=== PATIENT | male | born 1990 | race African-American/Black ===

== ENCOUNTER 2017-11-21 09:56 | Emergency (ER) | payer MEDICAID ==
[~2017-11-21] VITALS: Ht 185.4 cm; Wt 74.4 kg
[2017-11-21 10:15] VITALS: BP 97/55
--- NOTE | 2017-11-21 10:21 | NUR ---
Patient to bed 11 at this time.
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
[2017-11-21] MEDS ORDERED: DIAZEPAM 5 MG TAB PO ONE (10:30)
[2017-11-21] MEDS ORDERED: KETOROLAC 30 MG/ML VIAL IM ONE (10:30)
--- NOTE | 2017-11-21 10:33 | NUR ---
xray by bedside
[2017-11-21 11:10] VITALS: BP 103/60
--- NOTE | 2017-11-21 11:10 | NUR ---
Patient discharged with v/s stable. Written and verbal after care instructions given and explained. Patient alert, oriented and verbalized understanding of instructions. Ambulatory with steady gait. All questions addressed prior to discharge. ID band removed. Patient advised to follow up with PMD. Rx of Valium and Naprosyn given. Patient educated on indication of medication including possible reaction and side effects. Opportunity to ask questions provided and answered.
== END 2017-11-21 11:10 | disposition home or self-care (01) ==
LOC: MED 09:56
DX: S29.012A Strain of muscle and tendon of back wall of thorax, initial encounter (principal); S60.212A Contusion of left wrist, initial encounter; J45.909 Unspecified asthma, uncomplicated; V43.62XA Car passenger injured in collision with other type car in traffic accident, initial encounter; Y93.I9 Activity, other involving external motion; Y92.488 Other paved roadways as the place of occurrence of the external cause; Y99.8 Other external cause status
CPT/HCPCS: 71045; 73110; 96372; 99284; J1885; Q0092

== ENCOUNTER 2017-12-28 17:24 | Emergency (ER) | payer MEDICAID ==
[~2017-12-28] VITALS: Ht 185.4 cm; Wt 75.3 kg
[2017-12-28 17:45] VITALS: BP 129/75
--- NOTE | 2017-12-28 17:50 | NUR ---
Nicole alves in [facility] - 12/28/17 at 1810 by [facility] AT BEDSIDE.
--- NOTE | 2017-12-28 18:02 | NUR ---
Patient being evaluated by DR BAJWA .
--- NOTE | 2017-12-28 18:05 | NUR ---
27/M BIB SELF C/O TOOTHACHE TO LEFT UPPER AND LOWER JAW X2 DAYS.HX ASTHMA.DENIES N/V/D; SKIN IS PINK/WARM/DRY; AAOX4 WITH EVEN AND STEADY GAIT; LUNGS CLEAR BL; HR EVEN AND REGULAR; PT DENIES ANY FEVER, CP, SOB, OR COUGH AT THIS TIME; PATIENT STATES PAIN OF 08/27 AT THIS TIME. Addendum: 12/28/17 at 1806 by [email or web address] PT ARBEN NOT WANT PAIN MED AT THIS TIME.
--- NOTE | 2017-12-28 18:07 | NUR ---
Patient discharged BY DR BAJWA with v/s stable. Written and verbal after care instructions given and explained. Patient alert, oriented and verbalized understanding of instructions. Ambulatory with steady gait. All questions addressed prior to discharge. ID band removed. Patient advised to follow up with PMD. Rx of NAPROSYN, PENICILLIN given. Patient educated on indication of medication including possible reaction and side effects. Opportunity to ask questions provided and answered.
[2017-12-28 18:08] VITALS: BP 129/75
== END 2017-12-28 18:07 | disposition home or self-care (01) ==
LOC: MED 17:24
DX: K02.9 Dental caries, unspecified (principal); J45.909 Unspecified asthma, uncomplicated
CPT/HCPCS: 99283

== ENCOUNTER 2018-01-30 07:25 | Emergency (ER) | payer MEDICAID ==
[~2018-01-30] VITALS: Ht 182.9 cm; Wt 69.6 kg
[2018-01-30 07:29] VITALS: BP 119/74
--- NOTE | 2018-01-30 07:33 | NUR ---
PATIENT AMBULATED TO BED 3.
[2018-01-30] MEDS ORDERED: DICYCLOMINE HCL LIQUID 20 MG, ALUMINUM HYD/MAG/SIMETHICONE 30 ML, LIDOCAINE VISCOUS 2% ... PO ONE ×3 (07:35)
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
--- NOTE | 2018-01-30 07:49 | NUR ---
X-Ray at bedside.
[2018-01-30 08:24] VITALS: BP 131/80
--- NOTE | 2018-01-30 08:25 | NUR ---
Patient discharged with v/s stable. Written and verbal after care instructions given and explained. Patient alert, oriented and verbalized understanding of instructions. Ambulatory with steady gait. All questions addressed prior to discharge. ID band removed. Patient advised to follow up with PMD. Rx of Mylanta given. Patient educated on indication of medication including possible reaction and side effects. Opportunity to ask questions provided and answered.
== END 2018-01-30 08:25 | disposition home or self-care (01) ==
LOC: MED 07:25
DX: R10.10 Upper abdominal pain, unspecified (principal); J45.909 Unspecified asthma, uncomplicated
CPT/HCPCS: 74018; 99283; Q0092

== ENCOUNTER 2018-02-14 07:05 | Emergency (ER) | payer MEDICAID ==
[~2018-02-14] VITALS: Ht 185.4 cm; Wt 75.7 kg
[2018-02-14 07:19] VITALS: BP 126/78
[2018-02-14] MEDS ORDERED: IBUPROFEN 800 MG TAB PO ONE (07:35)
[2018-02-14] MEDS ORDERED: CYCLOBENZAPRINE 10 MG TAB PO ONE (07:35)
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
[2018-02-14 08:06] VITALS: BP 126/78
--- NOTE | 2018-02-14 08:12 | NUR ---
Patient discharged with v/s stable. Written and verbal after care instructions given and explained. Patient alert, oriented and verbalized understanding of instructions. Ambulatory with steady gait. All questions addressed prior to discharge. ID band removed. Patient advised to follow up with PMD. Rx of IBUPROFEN 800MG given. Patient educated on indication of medication including possible reaction and side effects. Opportunity to ask questions provided and answered.
== END 2018-02-14 08:12 | disposition home or self-care (01) ==
LOC: MED 07:05
DX: M54.5 Low back pain (principal); J45.909 Unspecified asthma, uncomplicated; Z71.6 Tobacco abuse counseling; V49.59XA Passenger injured in collision with other motor vehicles in traffic accident, initial encounter; Y93.89 Activity, other specified; Y92.488 Other paved roadways as the place of occurrence of the external cause; Y99.8 Other external cause status
CPT/HCPCS: 99283

== ENCOUNTER 2018-04-28 12:54 | Emergency (ER) | payer MEDICAID ==
[~2018-04-28] VITALS: Ht 185.4 cm; Wt 84.8 kg
--- NOTE | 2018-04-28 13:39 | NUR ---
ATTEMPTED TO TRIAGE PATIENT. PATIENT COMMENTED WHEN ANSWERING TO CALL "ABOUT TIME YOU GUYS WORK AND DO SOMETHING". I ASKED FOR OF PATIENT TO WAIT IN LOBBY WHILE TRAIGING PATIENT. ASKED TO STAY IN TRIAGE ROOM..AND STATED "IM HIS ...GO TO YOUR JOB AND SIT DOWN OVER THERE....THERES ROOM OVER THERE". I EXPLAINED TO PATIENT AND THAT THE ER WAS FULL AND SOON PATIENT WAS DONE BEING TRIAGED HE WOULD GO BACK TO [facility] TO WAIT FOR AN AVAILABLE ROOM. ALSO INFORMED OF PATIENT AND PATIENT, THEY ARE ABLE TO STAY WELL. PATIENT AND BECAME MORE AGGRESSIVE. STATED "I SAID GO DO YOUR JOB...BARBARA SEEN ALL THESE PATIENT COME BACK AND UP IN YOUR [facility] TRIAGE ROOM"..."WHY US...ITS BECAUSE OF OUR SKIN COLOR..BECAUSE WE ARE BLACK". I LEFT TRIAGE AREA TO DE-ESCALATE SITUATION AND FOR ANOTHER NURSE TO HELP AND SECURITY CALLED. WHILE GETTING ANOTHER NURSE, PATIENT STATED "GO AHEAD, YOU RACIST WHITE BITCH"..."ILL FIND YOU AND FUCK YOU UP YOU DUMB BITCH". DINORA TOWNSEND CALLED AND SECURITY ON THERE WAY.
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
[2018-04-28 13:49] VITALS: BP 120/73
--- NOTE | 2018-04-28 13:53 | NUR ---
PATIENT PRESENTS TO ED WITH c/o decayed molar pain---no drainage noted, no facial edema noted . . DENIES N/V/D; SKIN IS PINK/WARM/DRY; AAOX4 WITH EVEN AND STEADY GAIT; LUNGS CLEAR BL; HR EVEN AND REGULAR; PT DENIES ANY FEVER, CP, SOB, OR COUGH AT THIS TIME; PATIENT STATES PAIN OF 10/10 AT THIS TIME; VSS; PATIENT POSITIONED FOR COMFORT; HOB ELEVATED; BEDRAILS UP X2; BED DOWN. ER MD MADE AWARE OF PT STATUS.
[2018-04-28] MEDS ORDERED: ACETAMINOPHEN EXTRA STRENGTH 500 MG TAB PO ONE (14:45)
[2018-04-28] MEDS ORDERED: IBUPROFEN 400 MG TAB PO ONE (14:45)
--- NOTE | 2018-04-28 15:05 | NUR ---
Patient discharged with v/s stable. Written and verbal after care instructions given and explained. Patient alert, oriented and verbalized understanding of instructions. Ambulatory with steady gait. All questions addressed prior to discharge. ID band removed. Patient advised to follow up with PMD. Rx of NORCO/MOTRIN/AUGMENTIN given. Patient educated on indication of medication including possible reaction and side effects. Opportunity to ask questions provided and answered.
[2018-04-28 15:06] VITALS: BP 126/78
== END 2018-04-28 15:05 | disposition home or self-care (01) ==
LOC: MED 12:54
DX: K05.20 Aggressive periodontitis, unspecified (principal)
CPT/HCPCS: 99283

== ENCOUNTER 2020-08-30 07:38 | Emergency (ER) | payer MEDICAID ==
[~2020-08-30] VITALS: Ht 170.2 cm; Wt 75.7 kg
[2020-08-30 07:41] VITALS: BP 122/75
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
--- NOTE | 2020-08-30 07:48 | NUR ---
DR KU AT BEDSIDE EVALUATING PT.
[2020-08-30] MEDS ORDERED: IBUPROFEN 600 MG TAB PO ONE (07:50)
--- NOTE | 2020-08-30 08:00 | NUR ---
XRAY AT BEDSIDE .
[2020-08-30 08:29] VITALS: BP 122/75
--- NOTE | 2020-08-30 08:30 | NUR ---
Patient discharged with v/s stable. Written and verbal after care instructions given and explained regarding bone bruise. Patient alert, oriented and verbalized understanding of instructions. Ambulatory with steady gait. All questions addressed prior to discharge. ID band removed. Patient advised to follow up with PMD. Rx of motrin given. Patient educated on indication of medication including possible reaction and side effects. Opportunity to ask questions provided and answered.Off from work given.
== END 2020-08-30 08:30 | disposition home or self-care (01) ==
LOC: MED 07:38
DX: S69.92XA Unspecified injury of left wrist, hand and finger(s), initial encounter (principal); J45.909 Unspecified asthma, uncomplicated; F17.210 Nicotine dependence, cigarettes, uncomplicated; X58.XXXA Exposure to other specified factors, initial encounter; Y93.89 Activity, other specified; Y92.89 Other specified places as the place of occurrence of the external cause; Y99.8 Other external cause status
CPT/HCPCS: 73130; 99283; Q0092

== ENCOUNTER 2020-09-05 05:19 | Emergency (ER) | payer MEDICAID ==
[~2020-09-05] VITALS: Ht 185.4 cm; Wt 76.2 kg
[2020-09-05 05:30] VITALS: BP 120/86
[2020-09-05] MEDS ORDERED: KETOROLAC 60 MG/2 ML VIAL IM ONE (05:55)
[2020-09-05 06:41] VITALS: BP 120/86
== END 2020-09-05 06:41 | disposition home or self-care (01) ==
LOC: MED 05:19
DX: S60.222A Contusion of left hand, initial encounter (principal); J45.909 Unspecified asthma, uncomplicated; F12.90 Cannabis use, unspecified, uncomplicated; X58.XXXA Exposure to other specified factors, initial encounter; Y93.89 Activity, other specified; Y92.89 Other specified places as the place of occurrence of the external cause; Y99.8 Other external cause status
CPT/HCPCS: 73130; 99283; J1885; Q0092

== ENCOUNTER 2021-07-24 12:28 | Emergency (ER) | payer MEDICAID, OTHER ==
[~2021-07-24] VITALS: Ht 185.4 cm; Wt 78.0 kg
[2021-07-24 12:38] VITALS: BP 139/92
--- NOTE | 2021-07-24 12:45 | NUR ---
PT SENT TO LOBBY TO AWAIT AVAILABLE BED
--- NOTE | 2021-07-24 12:45 | NUR ---
PT. GIVEN URINE CUP TO PROVIDE SAMPLE
[2021-07-24] MEDS ORDERED: DICYCLOMINE HCL LIQUID 20 MG, ALUMINUM HYD/MAG/SIMETHICONE 30 ML, LIDOCAINE VISCOUS 2% ... PO ONE ×3 (14:35)
[2021-07-24] MEDS ORDERED: ONDANSETRON 4 MG ODT PO ONE (14:35)
[2021-07-24] MEDS ORDERED: ACETAMINOPHEN EXTRA STRENGTH 500 MG TAB PO ONE (14:35)
[2021-07-24] MEDS ORDERED: MAG355OR2 PO (15:26)
[2021-07-24] MEDS ORDERED: FAMO-90 PO (15:26)
[2021-07-24 16:24] LABS: BASOPHILS # (AUTO) 0.2 K/uL (0.00-0.22); BASOPHILS % (AUTO) 1.4 % (0.0-2.0); EOSINOPHILS # (AUTO) 0.2 K/uL (0-0.4); EOSINOPHILS % (AUTO) 1.9 % (0.0-4.0); HEMATOCRIT 40.6 % (36-52); HEMOGLOBIN 13.8 g/dL (12.0-18.0); LYMPHOCYTES # (AUTO) 3.8 K/uL (2.0-11.5); LYMPHOCYTES % (AUTO) 34.4 % (20.5-51.1); MEAN CORPUSCULAR HEMOGLOBIN 30 pg (27-31); MEAN CORPUSCULAR HGB CONC 34 g/dL (33-37); MEAN CORPUSCULAR VOLUME 87.3 fL (80-94); MONOCYTES # (AUTO) 0.7 K/uL (0.8-1.0); MONOCYTES % (AUTO) 6.3 % (1.7-9.3); NEUTROPHILS # (AUTO) 6.1 K/uL (1.8-7.7); PLATELET COUNT (AUTO) 278 K/uL (140-450); RED BLOOD CELL COUNT(AUTO) 4.65 MIL/uL (4.20-6.10); RED CELL DISTRIBUTION WIDTH 14.1 % (11.6-13.7); WHITE BLOOD COUNT (AUTO) 10.9 K/uL (4.8-10.8)
[2021-07-24] MEDS ORDERED: ALUMINUM HYD/MAG/SIMETHICONE 30 ML UDC ONE (16:36)
[2021-07-24] MEDS ORDERED: ONDANSETRON 4 MG TAB ONE (16:36)
[2021-07-24] MEDS ORDERED: ACETAMINOPHEN EXTRA STRENGTH 500 MG TAB ONE (16:36)
[2021-07-24] MEDS ORDERED: DICYCLOMINE HCL LIQUID 10 MG/5 ML UDC ONE (16:38)
[2021-07-24 16:46] LABS: ALBUMIN 4.1 g/dL (3.4-5.0); ANION GAP 10.1 (8-16); CARBON DIOXIDE 28.7 mmol/L (21-32); POTASSIUM 3.8 mmol/L (3.5-5.1); TOTAL BILIRUBIN 0.4 mg/dL (0.0-1.0)
[2021-07-24] MEDS ORDERED: MIRABULK PO (16:55)
[2021-07-24 17:00] VITALS: BP 128/90
--- NOTE | 2021-07-24 17:00 | NUR ---
Patient discharged with v/s stable. Written and verbal after care instructions given and explained. Patient alert, oriented and verbalized understanding of instructions. Ambulatory with steady gait. All questions addressed prior to discharge. ID band removed. Patient advised to follow up with PMD. Rx of FAMOTIDINE AND MIRALAX given. Patient educated on indication of medication including possible reaction and side effects. Opportunity to ask questions provided and answered.
== END 2021-07-24 17:00 | disposition home or self-care (01) ==
LOC: MED 12:28
DX: K29.70 Gastritis, unspecified, without bleeding (principal); K59.00 Constipation, unspecified; J45.909 Unspecified asthma, uncomplicated
CPT/HCPCS: 36415; 80053; 83690; 85025; 99284; Q0162

== ENCOUNTER 2021-08-01 06:15 | Emergency (ER) | payer OTHER ==
[~2021-08-01] VITALS: Ht 185.4 cm; Wt 78.0 kg
[~2021-08-01 06:15] MED LIST: FAMO-90 PO; MAG355OR2 PO; MIRABULK PO
[2021-08-01 06:26] VITALS: BP 132/45
[2021-08-01] MEDS ORDERED: ALUMINUM HYD/MAG/SIMETHICONE 30 ML UDC PO ONE (06:50)
[2021-08-01] MEDS ORDERED: FAMOTIDINE 20 MG TAB PO ONE (06:50)
[2021-08-01] MEDS ORDERED: ONDANSETRON 4 MG ODT PO ONE (07:05)
[2021-08-01] MEDS ORDERED: FAMO-92 PO (08:13)
[2021-08-01] MEDS ORDERED: SUCR1TAB35 PO (08:13)
[2021-08-01] MEDS ORDERED: ONDA-24 PO (08:13)
[2021-08-01] MEDS ORDERED: MAG355OR2 PO (08:13)
[2021-08-01 08:21] VITALS: BP 132/45
--- NOTE | 2021-08-01 08:21 | NUR ---
Patient discharged with v/s stable. Written and verbal after care instructions given ABD PAIN and explained. Patient alert, oriented and verbalized understanding of instructions. Ambulatory with steady gait. All questions addressed prior to discharge. ID band removed. Patient advised to follow up with PMD. Rx of PEPCID, MAALOX, ZOFRAN, CARAFATE given. Patient educated on indication of medication including possible reaction and side effects. Opportunity to ask questions provided and answered.
--- NOTE | 2021-08-01 08:32 | NUR ---
NO NURSING INTERVENTIONS DONE, NO ASSESSMENT NEEDED.
== END 2021-08-01 08:21 | disposition home or self-care (01) ==
LOC: MED 06:15
DX: R11.2 Nausea with vomiting, unspecified (principal); R10.13 Epigastric pain; J45.909 Unspecified asthma, uncomplicated
CPT/HCPCS: 99284; Q0162

== ENCOUNTER 2021-12-26 15:31 | Emergency (ER) | payer MEDICAID, OTHER ==
[~2021-12-26] VITALS: Ht 185.4 cm; Wt 84.8 kg
[~2021-12-26 15:31] MED LIST changes: +FAMO-92 PO; +ONDA-188 PO; +SUCR1TAB35 PO
[2021-12-26 15:40] VITALS: BP 123/106
--- NOTE | 2021-12-26 16:15 | NUR ---
No answer when called from or outside lobby.
[2021-12-26 16:16] VITALS: BP 123/106
--- NOTE | 2021-12-26 16:16 | NUR ---
CALLED [phone]. PT IS AT HOME. PATIENT LEFT WITHOUT BEING SEEN BY DR. ROX PASCUAL. NO FURTHER CARE PROVIDED FOR PATIENT.
== END 2021-12-26 16:16 | disposition left against medical advice (07) ==
LOC: MED 15:31
DX: M79.601 Pain in right arm (principal); Z53.21 Procedure and treatment not carried out due to patient leaving prior to being seen by health care provider

== ENCOUNTER 2022-04-04 05:45 | Emergency (ER) | payer MEDICAID ==
[~2022-04-04] VITALS: Ht 185.4 cm; Wt 84.8 kg
[2022-04-04 05:47] VITALS: BP 144/86
--- NOTE | 2022-04-04 05:52 | NUR ---
PT TAKEN TO BED #10
--- NOTE | 2022-04-04 05:57 | NUR ---
DR. LANZA AT BEDSIDE FOR EVALUATION
--- NOTE | 2022-04-04 05:58 | NUR ---
31 yo/m presents to ED w c/o epigastric/periumbilical pain 10/ non-rad constant x1 day, +n and vomiting multiple times. Pt denies any fevers, chills, diarhea/constipation, blood in stool or emesis. pt in position d/t pain. jonathan pope at bedside. pmh: denies allergies: denies
[2022-04-04] MEDS ORDERED: NACL 0.9% 1,000 ML IV ONE (06:15)
[2022-04-04] MEDS ORDERED: ONDANSETRON 4 MG/2 ML VIAL IVP ONE (06:15)
[2022-04-04] MEDS ORDERED: FAMOTIDINE 20 MG/2 ML VIAL IVP ONE (06:15)
--- NOTE | 2022-04-04 06:31 | NUR ---
PT UNABLE TO PROVIDE URINE SAMPLE AT THIS TIME. WILL ATTEMPT SOON.
[2022-04-04 06:52] LABS: ALBUMIN 4.3 g/dL (3.4-5.0); ANION GAP 11.3 (8-16); CARBON DIOXIDE 29.3 mmol/L (21-32); CREATININE 1.2 mg/dL (0.6-1.3); POTASSIUM 4.6 mmol/L (3.5-5.1); TOTAL BILIRUBIN 0.5 mg/dL (0.0-1.0)
[2022-04-04] MEDS ORDERED: MORPHINE SULFATE 4 MG/ML SYR IVP ONE (07:00)
--- NOTE | 2022-04-04 07:00 | NUR ---
ERMD AT BEDSIDE FOR CONTINUITY OF PT CARE .
--- NOTE | 2022-04-04 07:15 | NUR ---
PT AOX4, ABLE TO MAKE NEEDS KNOWN. RESP EVEN AND UNLABORED ON RA. PT C/O ABD PAIN AT THIS TIME WITH + BS HEARD X 4 AND ABD TENDER TO TOUCH, ASSISTED TO REPOSITION FOR COMFORT. POSSIBLE ABNORMAL RHYTHM NOTED ON TELE MONITOR, DR ORLANDO MADE AWARE. DR ORLANDO AT BEDSIDE TO ASSESS PT WITH NEW ORDERS NOTED AND CARRIED OUT. PT DENIES N/V/D/CP AT THIS TIME. NO SOB, SKIN WARM AND DRY TO TOUCH. LUNG SOUNDS CLEAR BILAT. CIRCULATION INTACT BILAT AND EQUAL. LAB CALLED FOR FOLLOW UP ON RESULTS AT THIS TIME, PER LAB BLOOD IS RUNNING AND FULL RESULTS WILL BE POSTED SOON.
--- NOTE | 2022-04-04 07:19 | NUR ---
Pt report given to ALFONSO JOYCE. Transfer of care at this time.
[2022-04-04 07:27] LABS: BASOPHILS # (AUTO) 0.1 K/uL (0.00-0.22); BASOPHILS % (AUTO) 0.5 % (0.0-2.0); EOSINOPHILS # (AUTO) 0.3 K/uL (0-0.4); EOSINOPHILS % (AUTO) 2.7 % (0.0-4.0); HEMATOCRIT 42.7 % (36-52); HEMOGLOBIN 14.5 g/dL (12.0-18.0); LYMPHOCYTES # (AUTO) 2.9 K/uL (2.0-11.5); LYMPHOCYTES % (AUTO) 28.2 % (20.5-51.1); MEAN CORPUSCULAR HEMOGLOBIN 29 pg (27-31); MEAN CORPUSCULAR HGB CONC 34 g/dL (33-37); MEAN CORPUSCULAR VOLUME 85.8 fL (80-94); MONOCYTES # (AUTO) 0.5 K/uL (0.8-1.0); MONOCYTES % (AUTO) 5.1 % (1.7-9.3); NEUTROPHILS # (AUTO) 6.5 K/uL (1.8-7.7); NEUTROPHILS % (AUTO) 63.5 % (42.2-75.2); PLATELET COUNT (AUTO) 291 K/uL (140-450); RED BLOOD CELL COUNT(AUTO) 4.98 MIL/uL (4.20-6.10); RED CELL DISTRIBUTION WIDTH 14.3 % (11.6-13.7); WHITE BLOOD COUNT (AUTO) 10.3 K/uL (4.8-10.8)
[2022-04-04] MEDS ORDERED: ONDA-188 PO (08:37)
[2022-04-04] MEDS ORDERED: FAMO-92 PO (08:37)
[2022-04-04 08:59] VITALS: BP 123/72
--- NOTE | 2022-04-04 09:00 | NUR ---
Patient discharged with v/s stable. Written and verbal after care instructions given and explained. Patient alert, oriented and verbalized understanding of instructions. Ambulatory with steady gait. All questions addressed prior to discharge. ID band removed. Patient advised to follow up with PMD. Rx of zofran,pepcid given. Patient educated on indication of medication including possible reaction and side effects. Opportunity to ask questions provided and answered.
== END 2022-04-04 09:00 | disposition home or self-care (01) ==
LOC: MED 05:45
DX: K29.70 Gastritis, unspecified, without bleeding (principal); R11.10 Vomiting, unspecified; F12.188 Cannabis abuse with other cannabis-induced disorder
CPT/HCPCS: 36415; 80053; 83690; 85025; 93005; 96374; 96375; 99284; J2270; J2405; J3490; J7030; 81002

== ENCOUNTER 2023-02-22 11:46 | Inpatient (IN) | payer MEDICAID ==
[~2023-02-22] VITALS: Ht 177.8 cm; Wt 77.6 kg
[2023-02-22 11:56] VITALS: BP 132/91
--- NOTE | 2023-02-22 12:29 | NUR ---
ROX HIRSCH AT BEDSIDE FOR EVAL
[2023-02-22 12:33] LABS: BASOPHILS # (AUTO) 0.1 K/uL (0.00-0.22); BASOPHILS % (AUTO) 1.3 % (0.0-2.0); EOSINOPHILS # (AUTO) 0.1 K/uL (0-0.4); HEMATOCRIT 49.2 % (36-52); HEMOGLOBIN 17.1 g/dL (12.0-18.0); LYMPHOCYTES # (AUTO) 3.3 K/uL (2.0-11.5); LYMPHOCYTES % (AUTO) 30.9 % (20.5-51.1); MEAN CORPUSCULAR HEMOGLOBIN 29 pg (27-31); MEAN CORPUSCULAR HGB CONC 35 g/dL (33-37); MONOCYTES # (AUTO) 0.8 K/uL (0.8-1.0); MONOCYTES % (AUTO) 7.8 % (1.7-9.3); NEUTROPHILS # (AUTO) 6.3 K/uL (1.8-7.7); PLATELET COUNT (AUTO) 322 K/uL (140-450); RED BLOOD CELL COUNT(AUTO) 5.93 MIL/uL (4.20-6.10); RED CELL DISTRIBUTION WIDTH 14.3 % (11.6-13.7); WHITE BLOOD COUNT (AUTO) 10.7 K/uL (4.8-10.8)
[2023-02-22] MEDS ORDERED: MORPHINE SULFATE 4 MG/ML SYR IM ONE (12:35)
[2023-02-22] MEDS ORDERED: ONDANSETRON 4 MG ODT PO ONE (12:35)
[2023-02-22 12:51] LABS: APPEARANCE,URINE CLEAR (CLEAR); BILIRUBIN,URINE 1+ (NEGATIVE); BLOOD, URINE 1+ (NEGATIVE); COLOR,URINE YELLOW (YELLOW); LEUKOCYTE ESTERASE ,URINE NEGATIVE (NEGATIVE); NITRITE, URINE NEGATIVE (NEGATIVE); PH,URINE 5.5 (5.0-9.0); UGLUCOSE NEGATIVE (NEGATIVE)
[2023-02-22 13:02] LABS: ALBUMIN 5.1 g/dL (3.4-5.0); ANION GAP 18.2 (8-16); CARBON DIOXIDE 29.4 mmol/L (21-32); CREATININE 2.7 mg/dL (0.6-1.3); POTASSIUM 3.6 mmol/L (3.5-5.1); TOTAL BILIRUBIN 0.6 mg/dL (0.0-1.0)
[2023-02-22 13:06] LABS: RBC,URINE 0-5 /HPF (0-5)
[2023-02-22 13:07] LABS: WBC,URINE 0-5 /HPF (0-5)
[2023-02-22] MEDS ORDERED: MORPHINE SULFATE 4 MG/ML SYR ONE (14:26)
[2023-02-22] MEDS ORDERED: ONDANSETRON 4 MG ODT ONE (14:27)
[2023-02-22] MEDS ORDERED: NACL 0.9% 2,000 ML IV ONE (14:40)
[2023-02-22] MEDS ORDERED: MORPHINE SULFATE 4 MG/ML SYR IVP ONE ×2 (14:50→19:05)
[2023-02-22] MEDS ORDERED: ACETAMINOPHEN 325 MG TAB PO ONE (16:15)
[2023-02-22] MEDS ORDERED: ACETAMINOPHEN 325 MG TAB ONE (16:18)
--- NOTE | 2023-02-22 16:21 | NUR ---
PT IS IN BED, STILL IN PAIN 04/27. BUT PT STATED "MUCH BETTER NOW."
[2023-02-22 18:26] LABS: ANION GAP 15.5 (8-16); CARBON DIOXIDE 27.9 mmol/L (21-32); CREATININE 2.1 mg/dL (0.6-1.3); POTASSIUM 4.4 mmol/L (3.5-5.1)
--- NOTE | 2023-02-22 18:45 | NUR ---
Dr Cuellar wants to admit pt. He was at bedside and told pt re: plan. Pt is in agreement.
--- NOTE | 2023-02-22 19:23 | NUR ---
report given to carlos day
[2023-02-22] MEDS: NACL 0.9% 1,000 ML IV SCH (19:25)
--- NOTE | 2023-02-22 19:30 | NUR ---
ASSUMED CARE OF PT AT THIS TIME. PT VERY AGITATED AND UPSET. PT STATES HE WANTS TO KNOW WHATS GOING ON. WALKED OVER TO BED WITH PT AND UPDATED HIM ON POC. PT WILL BE ADMITTED. PT C/O PAIN AT THIS TIME. WILL FOLLOW THROUGH WILL ORDERS.
[2023-02-22 20:41] LABS: BARBITURATE, URINE NEGATIVE ng/ml (NEG <=200); BENZODIAZEPINE, URINE NEGATIVE ng/mL (NEG <=200); CANNABINOID, URINE POSITIVE ng/mL (NEG <=50); COCAINE, URINE NEGATIVE ng/mL (NEG <=300); OPIATE, URINE NEGATIVE ng/mL (NEG <=2000); PHENCYCLIDINE SCREEN,URINE NEGATIVE ng/mL (NEG <=25)
--- NOTE | 2023-02-22 21:00 | NUR ---
PT RESTING, PT HUNGRY ON REGULAR DIET. EXPLAINED TO PT HE COULD HAVE A SANDWICH. PT HAS FOOD COMING FROM HIS FAMILY.
--- NOTE | 2023-02-22 23:00 | NUR ---
PT RESTING, NO S/S OF DISTRESS NOTED. VSS
--- NOTE | 2023-02-23 00:30 | NUR ---
NO CHANGE IN PT STATUS, DENIES ANY PAIN AT THIS TIME. RESTING.
[2023-02-23] MEDS ORDERED: MORPHINE SULFATE 5 MG/ML VIAL IVP PRN ×3 (00:35→05:05)
[2023-02-23] MEDS ORDERED: ZOLPIDEM 5 MG TAB PO SCH (00:35)
[2023-02-23] MEDS ORDERED: ALUMINUM HYD/MAG/SIMETHICONE 30 ML UDC PO ONE (00:35)
[2023-02-23] MEDS ORDERED: ALUMINUM HYD/MAG/SIMETHICONE 30 ML UDC ONE (00:50)
[2023-02-23] MEDS ORDERED: MORPHINE SULFATE 10 MG/ML VIAL ONE ×2 (00:50→05:32)
--- NOTE | 2023-02-23 02:00 | NUR ---
NO CHANGE IN PT STATUS. PT UPSET DUE TO NO BED AVAILABILITY IN HOSPITAL. PT STATES HE CANT SLEEP AND ITS VERY LOUD. PROVIDED PILLOWS AND BLANKETS.
[2023-02-23] MEDS: NACL 0.9% 1,000 ML IV SCH (05:44)
[2023-02-23 07:29] VITALS: BP 138/74
--- NOTE | 2023-02-23 07:33 | NUR ---
REPORT GIVEN TO MAURICIO
--- NOTE | 2023-02-23 07:55 | NUR ---
Patient will be admitted to care of [facility]. Admited to [facility]. Will go to [id number]. Belongings list completed. Report to BARRON.
--- NOTE | 2023-02-23 08:00 | NUR ---
RECIEVED PATIENT FROM ED NURSE. PATIENT WAS IN WHEEL CHAIR, VOCAL AND ANGRY. PATIENT STATED OF "STAYING IN ED SINCE 9AM 02/22/23. WANTING A PRIVATE ROOM ON HIS OWN." NONCOMPLIANCE TO STAFF REQUEST AND INTERACTION.
== END 2023-02-23 10:05 | disposition left against medical advice (07) | DRG 422 ==
LOC: MED 11:46 → MTU 19:24
PROVIDERS: ADMIT Family Medicine; ATTEND Family Medicine
DX: E86.0 Dehydration (principal); N17.9 Acute kidney failure, unspecified; Z53.29 Procedure and treatment not carried out because of patient's decision for other reasons; Z20.822 Contact with and (suspected) exposure to COVID-19
CPT/HCPCS: 36415; 74022; 76705; 80048; 80053; 80305; 81001; 83690; 85025; 87081; 96361; 96374; 96376; 99285; J2270; Q0092; Q0162

== ENCOUNTER 2024-07-02 12:50 | Emergency (ER) | payer MEDICAID ==
[~2024-07-02] VITALS: Ht 185.4 cm; Wt 74.4 kg
[2024-07-02 13:16] VITALS: BP 123/89; PULSE 75; RESP 19; TEMP 97.6; O2SAT 97
[2024-07-02] MEDS ORDERED: KETOROLAC 60 MG/2 ML VIAL IM ONE (13:40)
[2024-07-02] MEDS: ONDANSETRON 4 MG ODT PO ONE (13:40)
[2024-07-02] MEDS: ONDANSETRON 4 MG/2 ML VIAL IVP ONE (14:02)
[2024-07-02] MEDS: KETOROLAC 30 MG/ML VIAL IVP ONE (14:03)
[2024-07-02] MEDS: NACL 0.9% 1,000 ML IV ONE (14:08)
[2024-07-02] MEDS ORDERED: ONDA8TAB87 PO (14:59)
[2024-07-02] MEDS ORDERED: MIRABULK PO (14:59)
[2024-07-02] MEDS ORDERED: MAGN296S70 PO (14:59)
[2024-07-02] MEDS ORDERED: ACET-8905 PO (14:59)
[2024-07-02 15:38] VITALS: BP 136/80; PULSE 80; RESP 18; TEMP 97.3; O2SAT 99
== END 2024-07-02 15:33 | disposition home or self-care (01) ==
LOC: MED 12:50
DX: K59.00 Constipation, unspecified (principal); R10.13 Epigastric pain; R11.2 Nausea with vomiting, unspecified; R03.0 Elevated blood-pressure reading, without diagnosis of hypertension
CPT/HCPCS: 96361; 96374; 96375; 99284; J1885; J2405; J7030; Q0162